=== PATIENT | female | born 1995 | race African-American/Black ===

== ENCOUNTER 2019-10-14 08:25 | Emergency (ER) | payer BC ==
--- NOTE | 2019-10-14 09:05 | ULT ---
US Gallbladder RUQ History: Right upper quadrant pain Comparison: None. Findings: Real-time grayscale and color evaluation of the abdomen was performed. The hepatic echotexture is normal. No mass. There is cholelithiasis without cholecystitis. No wall thickening of the gallbladder. No pericholecys tic fluid. The portal vein is patent with antegrade flow. Common bile duct measures 3 mm, normal. Right kidney measures 10.8 x 3.6 x 5.1 cm without mass, hydronephrosis, or abnormal calcifications. Impression: Cholelithiasis without cholecystitis.
[2019-10-14 09:38] LABS: #Lymphocytes 1.4 thou/uL (1.20-3.40); #Monocytes 0.5 thou/uL (0.11-0.59); #Neutrophils 6.3 thou/uL (1.40-6.50); %Basophils 0.4 % (0.0-1.0); %Eosinophils 0.5 % (0.0-10.0); %Lymphocytes 17.4 % (21.0-51.0); %Monocytes 5.6 % (0.0-10.0); %Neutrophils 76.1 % (42.0-75.0); Hemoglobin 11.3 g/dL (12.0-16.0); Mean Corpuscular HGB CONC 33.2 g/dL (32.0-36.0); Mean Corpuscular Hemoglobin 28.2 pg (27.0-31.0); Mean Platelet Volume 7.4 fL (7.4-10.4); Platelet Count 224 thou/uL (130-400); RBC Distribution Width 11.6 % (11.5-14.5); Red Blood Cell (RBC) Count 4.01 mill/uL (4.20-5.40); White Blood Cell (WBC) Count 8.3 thou/uL (4.8-10.8)
[2019-10-14 09:57] LABS: ALT (SGPT) 615 U/L (8-55); AST (SGOT) 1067 U/L (5-34); Albumin 3.9 g/dL (3.5-5.0); Alkaline Phosphatase 99 U/L (40-110); Anion Gap 10 mmol/L (10-20); BUN (Urea Nitrogen) 10 mg/dL (7.0-18.7); Bilirubin, Total 0.4 mg/dL (0.2-1.2); Calc. Creatinine Clearance 0 mL/min (70-130); Calcium 8.8 mg/dL (7.8-10.44); Carbon Dioxide 23 mmol/L (22-29); Chloride 108 mmol/L (98-107); Estimated GFR-MDRD Greater than 90; Globulin 2.9 g/dL (2.4-3.5); Glucose 99 mg/dL (70-105); Lipase 25 U/L (8-78); Protein, Total 6.8 g/dL (6.0-8.3); Sodium 137 mmol/L (136-145)
[2019-10-14 11:32] LABS: HBCM Index 0.12 S/CO (0-0.79); Hep A IgM AB Non-Reactive (NonReactive); Hep A IgM S/CO 0.13 S/CO (0-0.79); Hep C IgG Ab Non-Reactive (NonReactive); Hep C Index 0.07 S/CO (0-0.79); Hepatitis B Core IgM Abs Non-Reactive (NonReactive)
[2019-10-14 12:23] LABS: HBSAg Index 3670.78 S/CO (0-0.99)
[2019-10-14 12:24] LABS: Hep B Surf Ag Reflx Confirmation S/CO (NonReactive)
[2019-10-15 08:10] LABS: Hep B Surface AG-Rflx Sendout Confirm. indicated (Negative)
== END 2019-10-14 10:49 | disposition home or self-care (01) ==
LOC: ERS 08:25
DX: R74.0 Nonspecific elevation of levels of transaminase and lactic acid dehydrogenase [LDH] (principal); R10.11 Right upper quadrant pain
CPT/HCPCS: 36415; 76705; 80053; 80074; 83690; 85025; 87340